=== PATIENT | male | born 1955 ===

== ENCOUNTER 2016-11-06 10:42 | Emergency (ER) | payer OTHER ==
[2016-11-06 11:00] VITALS: BP 150/78; PULSE 90; RESP 20; TEMP 98; O2SAT 98
--- NOTE | 2016-11-06 11:17 | ED PDOC ---
Lower Extremity Pain/Injury Time Seen by Provider: 11/06/16 10:47 Chief Complaint (Nursing): Lower Extremity Problem/Injury Additional Complaint(s): Patient is a 61 y/o M presenting with 1 month history of R buttock pain radiating into R lateral thigh. He reports that he has no PMD so he presented to ED. He denies trauma. He reports that the pain is exacerbated by sitting and standing at his job. He denies weakness, numbness or tingling. He denies bowel or bladder incontinence. He denies midline back pain. Past Medical History Vital Signs: Last Vital Signs Temp 98 F 11/06/16 10:58 Pulse 90 11/06/16 10:58 Resp 20 11/06/16 10:58 BP 150/78 11/06/16 10:58 Pulse Ox 98 11/06/16 10:58 - Medical History PMH: No Chronic Diseases - Family History Family History: States: No Known Family Hx - Home Medications Home Medications: Ambulatory Orders Medication Instructions Recorded Cyclobenzaprine [Flexeril] 5 mg PO TID #20 tab 11/06/16 - Allergies Allergies/Adverse Reactions: Allergies Allergy/AdvReac Type Severity Reaction Status Date / Time No Known Allergies Allergy Verified 11/06/16 10:58 Review of Systems Constitutional: Negative for: Fever, Chills Cardiovascular: Negative for: Chest Pain, Palpitations, Paroxysmal Noc. Dyspnea , Edema Respiratory: Negative for: Cough, Shortness of Breath, SOB with Exertion, Wheezing Gastrointestinal: Negative for: Nausea, Vomiting, Abdominal Pain, Diarrhea, Constipation, Rectal Pain Genitourinary Male: Negative for: Dysuria, Frequency, Incontinence, Hematuria, Penile Discharge Musculoskeletal: Positive for: Other (R buttock ). Negative for: Neck Pain, Shoulder Pain, Arm Pain, Back Pain, Hand Pain, Leg Pain Skin: Negative for: Rash Neurological: Negative for: Weakness, Numbness, Incoordination, Change in Speech , Altered Mental Status, Headache Physical Exam - Physical Exam Appears: Positive for: Non-toxic Head Exam: Positive for: ATRAUMATIC, NORMAL INSPECTION, NORMOCEPHALIC Skin: Positive for: Normal Color, Warm, DRY Eye Exam: Positive for: EOMI, Normal appearance, PERRL Neck: Positive for: Normal, Painless ROM, Supple Cardiovascular/Chest: Positive for: Regular Rate, Rhythm, Chest Non Tender Respiratory: Positive for: Normal Breath Sounds. Negative for: Rales, Rhonchi, Wheezing Pulses-Post. Tibialis (L): 2+ Pulses-Post. Tibialis (R): 2+ Pulses-Radial (L): 2+ Pulses-Radial (R): 2+ Gastrointestinal/Abdominal: Positive for: Soft. Negative for: Tenderness, Mass , Distended Back: Positive for: Normal Inspection. Negative for: Vertebral Tenderness, Decreased ROM, Muscle Spasm Extremity: Positive for: Normal ROM, Other (positive straight leg raise R leg, ) . 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 Tigre has no neuro deficits, no midline pain and no history of trauma. Will give toradol and valium and dc with flexeril to follow-up in [facility] Disposition - Clinical Impression Clinical Impression: Sciatica - Disposition Referrals: [facility] [Outside] [facility] [Outside] Disposition: Routine/Home Disposition Time: 11:15 Condition: GOOD Additional Instructions: Follow up with [facility]. Return to ED if condition worsens. Take flexeril for pain. Prescriptions: Cyclobenzaprine [Flexeril] 5 mg PO TID #20 tab Instructions: Sciatica (ED) Forms: [facility] ([place]ian), [facility] ED School/Work Excuse Print Language: [place]
== END 2016-11-06 11:44 | disposition home or self-care (01) ==
LOC: H.ER 10:42
DX: M54.31 Sciatica, right side (principal)
CPT/HCPCS: 96372; 99283; J1885